=== PATIENT | male | born 1975 | race Caucasian/White ===

== ENCOUNTER 2024-07-23 09:46 | Outpatient (AMB) | payer MEDICARE, MEDICAID, SELFPAY ==
--- NOTE | 2024-07-23 09:53 | MHC.OFFVIS ---
Intake Visit Reasons: Left Shoulder pain and weakness Intake Note: Ruperto is a 49 year old male who presents with complaints of progressively worsening left shoulder pain and weakness. The patient states that he injured his left shoulder in 2020 when a tree limb fell onto his left arm. Since that time he has had difficulty lifting his left hand above shoulder height. He has failed the last 6 weeks of conservative treatment which have included physical therapy exercises, Tylenol and anti-inflammatory medicines. The patient describes his pain as sharp in nature. Most of the pain is along the superior and lateral aspects of his left shoulder. He denies any numbness or tingling in either of his upper extremities. Account Development Associate Required: Yes Account Development Associate Language: Guyanese Account Development Associate Name: [email or web address] [id number] Allergies No Known Allergies Allergy (Verified 07/23/24 09:57) Medication List - Last Reconciled 07/23/24 by Haim Parker MD No Known Home Meds Physical Exam Const Other: Well-nourished well-developed very friendly male awake alert and oriented x3 in no acute distress Extrem Other: Bilateral upper extremity examination shows good capillary refill, no skin lesions noted, normal sensation light touch Left shoulder examination shows slightly decreased range of motion when compared to his right shoulder, 4/5 strength with supraspinatus testing, positive impingement signs, tenderness over his acromioclavicular joint, no instability Results Reviewed Results Reviewed: X-rays of the patient's left shoulder show severe acromioclavicular joint narrowing, a type 2 acromion, no acute bony abnormalities Assessment & Plan Assessment & Plan (1) Left shoulder pain: Code(s): M25.512 - Pain in left shoulder Category: Medical Plan Mr. Menezes presents with progressively worsening left shoulder pain and weakness most likely due to a full-thickness rotator cuff tear. Thus, I will send the patient for an MRI of his left shoulder further evaluation. If he does have a full-thickness tear I will recommend surgical repair to optimize his future functional level. He will continue with his range of motion exercises in the meantime to prevent stiffness. Feel free to call me at any time should questions regarding his orthopedic management arise. Thank you very much for asking me to see this very friendly gentleman. I spent 22 minutes in reviewing the patient's records and imaging studies, seeing the patient and documenting in the medical record. Orders: Orders shoulder LT wo con Today M75.122 - Complete rotator cuff tear or rupture of left shoulder, not specified as traumatic XR shoulder LT min 2V Today M25.512 - Pain in left shoulder Coding Level of Care Code New Pt Level 3 (09068) Complex EM visit Add On G2211 Diagnoses Left shoulder pain M25.512
== END 2024-07-23 10:19 | disposition home or self-care (01) ==
PROVIDERS: PCP Nurse Practitioner; Visit Provider Orthopaedic Surgery
DX: M25.512 Pain in left shoulder (principal)
CPT/HCPCS: 99203; G2211

== ENCOUNTER 2024-07-23 10:20 | Outpatient (REF) | payer MEDICARE, SELFPAY ==
--- NOTE | ~2024-07-23 | XR_ITS ---
EXAMINATION: XR SHOULDER LEFT 2 VIEWS CLINICAL INFORMATION: Pain in left shoulder M25.512. COMPARISON: None available TECHNIQUE: Neutral AP and transscapular views of the left shoulder. FINDINGS: There is no fracture or dislocation. The glenohumeral joint is well aligned. The acromioclavicular joint is intact. The visualized lung is clear. The visualized ribs are intact. XR/XR shoulder LT min 2V IMPRESSION: Normal left shoulder radiographs. Electronically signed by: Eugenio Olsen MD 09/16/2024 07:48 AM [facility]
== END 2024-07-23 10:21 | disposition home or self-care (01) ==
LOC: HO.HOSX 10:20
PROVIDERS: Visit Provider Orthopaedic Surgery
DX: M25.512 Pain in left shoulder (principal)
CPT/HCPCS: 73030; 99202

== ENCOUNTER 2024-09-01 19:54 | Outpatient (REF) | payer MEDICARE, MEDICAID, SELFPAY ==
--- NOTE | ~2024-09-01 | MR_ITS ---
EXAMINATION: MR SHOULDER WITHOUT CONTRAST, LEFT CLINICAL INFORMATION: Left shoulder pain, swelling, numbness. Evaluate for rotator cuff tendon tear. COMPARISON: Left shoulder radiographs dated 07/23/2024. TECHNIQUE: MRI of the shoulder without contrast was performed on a high-field scanner. FINDINGS: ROTATOR CUFF: Complete, full-thickness tear of the supraspinatus tendon with a near-complete, full-thickness tear of the infraspinatus tendon. There are a few thin posterior infraspinatus tendon fibers remaining intact. Overall tearing measures up to 4.5 x 4.2 cm (AP x ML). The torn tendon fibers are retracted proximal to the humeral head apex. Mild edema within the supraspinatus and infraspinatus muscle bellies, consistent with acute strains. Moderate subscapularis tendinosis with distal bursal surface partial tearing. Mild infraspinatus muscle atrophy. BICEPS: Medial subluxation of the proximal long head biceps tendon with mild intra-articular tendinosis. CORACOACROMIAL ARCH: The undersurface of the acromion is curved with tiny subacromial spurs. Mild acromioclavicular osteoarthritis. LABRUM/CAPSULE: No labral tear. Intact inferior joint capsule. GLENOHUMERAL JOINT/MARROW: Intact articular cartilage. No acute osseous injury. Xscud-jz-rwtvskya joint effusion. MR/MR shoulder LT wo con IMPRESSION: 1. Complete, full-thickness tear of the supraspinatus tendon with a near-complete, full-thickness tear of the infraspinatus tendon. There are a few thin posterior infraspinatus tendon fibers remaining intact. The torn tendon fibers are retracted proximal to the humeral head apex. Mild supraspinatus and infraspinatus muscle strains. 2. Moderate subscapularis tendinosis with distal bursal surface partial tearing. Medial subluxation of the proximal long head biceps tendon with mild intra-articular tendinosis. 3. Mild acromioclavicular osteoarthritis with tiny subacromial spurs. 4. [id number]-vk-[id number] glenohumeral joint effusion. Electronically signed by: Luis Garcia MD 09/17/2024 12:46 PM [facility] [place] [facility]
== END 2024-09-01 19:55 | disposition home or self-care (01) ==
LOC: HO.MRI 19:54
PROVIDERS: Visit Provider Orthopaedic Surgery
DX: M75.122 Complete rotator cuff tear or rupture of left shoulder, not specified as traumatic (principal)
CPT/HCPCS: 73221

== ENCOUNTER 2024-10-20 11:00 | Outpatient (AMB) | payer MEDICARE, MEDICAID, SELFPAY ==
--- NOTE | 2024-10-20 11:01 | A.OFFVIS_ITS ---
Intake Visit Reasons: OV-Left shoulder MRI review Intake Note: Ruperto is a 49 year old male who presents with complaints of progressively worsening left shoulder pain and weakness. The patient states that he injured his left shoulder in 2020 when a tree limb fell onto his left arm. Since that time he has had difficulty lifting his left hand above shoulder height. He has failed the last 6 weeks of conservative treatment which have included physical therapy exercises, Tylenol and anti-inflammatory medicines. The patient describes his pain as sharp in nature. Most of the pain is along the superior and lateral aspects of his left shoulder. He denies any numbness or tingling in either of his upper extremities. Integrated Specialist Required: Yes Integrated Specialist Language: Montserratian Integrated Specialist Name: [id number] Information Interpreted: non-clinical & clinical Allergies No Known Allergies Allergy (Verified 10/20/24 11:01) Medication List - Last Reconciled 10/20/24 by Haim Parker MD No Known Home Meds Physical Exam Const Other: Well-nourished well-developed very friendly male awake alert and oriented x3 in no acute distress Extrem Other: Bilateral upper extremity examination shows good capillary refill, no skin lesions noted, normal sensation light touch Left shoulder examination shows decreased range of motion when compared to his right shoulder, 4/5 strength with supraspinatus testing, positive impingement signs, tenderness over his acromioclavicular joint, no instability Results Reviewed Results Reviewed: MRI of the patient's left shoulder show severe acromioclavicular joint narrowing, a type 2 acromion, a full-thickness tear of the supraspinatus tendon Assessment & Plan Assessment & Plan (1) Rotator cuff insufficiency of left shoulder: Code(s): M25.312 - Other instability, left shoulder Category: Medical Plan Mr. Menezes presents with progressively worsening left shoulder pain and weakness due to a full-thickness rotator cuff tear, impingement syndrome and acromioclavicular joint arthritis. I had a lengthy discussion with the patient regarding the treatment options. At this point the patient has failed continued non operative treatments. The risks and benefits of left shoulder surgery were discussed at length with the patient. He is considering undergoing surgery later this year. He will contact my office to pick a surgery date when he chooses to do so. He does understand that his tear can become larger in size and even irreparable over time. Surgery will most likely involve left shoulder diagnostic arthroscopy with distal clavicle excision, acromioplasty and rotator cuff repair. The patient will follow-up as instructed. Feel free to call me at any time should questions regarding his orthopedic management arise. I spent 21 minutes in reviewing the patient's records and imaging studies, seeing the patient and documenting in the medical record. Coding Level of Care Code Est Pt Level 3 (98472) Complex EM visit Add On G2211 Diagnoses Rotator cuff insufficiency of left shoulder M25.312
== END 2024-10-20 11:19 | disposition home or self-care (01) ==
PROVIDERS: PCP Nurse Practitioner; Visit Provider Orthopaedic Surgery
DX: M25.312 Other instability, left shoulder (principal)
CPT/HCPCS: 99213; G2211

== ENCOUNTER → 2024-10-20 11:00 | Outpatient (BNVA) | payer MEDICARE, MEDICAID, SELFPAY | PROVIDERS: PCP Nurse Practitioner; Visit Provider Orthopaedic Surgery | DX: M25.312 Other instability, left shoulder (principal) | CPT/HCPCS: 99212 ==

== ENCOUNTER 2025-04-14 10:34 | Outpatient (AMB) | payer MEDICARE, MEDICAID, SELFPAY ==
--- NOTE | 2025-04-14 10:40 | MHC.OFFVIS ---
Vital Signs 04/14/25 10:59 Height 5 ft 6 in Weight 176 lb 5.917 oz BMI 28.5 Intake Visit Reasons: New Prob - Left Hand Middle Finger Pain Intake Note: Ruperto is a 49 year old right hand dominant male who presents today for a New Problem visit with complaints of Left Middle Finger Pain. He reports that he cut his finger about a month ago with a knife, he did not need stitches. He is unable to actively extend the finger on his own. Pain is felt at the middle finger joint and feels that there is fluid in the finger. Denies numbness. X Ray Equipment Mechanic Required: Yes X Ray Equipment Mechanic Language: Surinamese X Ray Equipment Mechanic Name: [id number] Allergies No Known Allergies Allergy (Verified 10/20/24 11:01) HPI HPI New Prob - Left Hand Middle Finger Pain: Details: Ruperto is a 49 year old right hand dominant male who presents today for a New Problem visit with complaints of Left Middle Finger Pain. He reports that he cut his finger about a month ago with a knife, he did not need stitches. He is unable to actively extend the finger on his own. Pain is felt at the middle finger joint and feels that there is fluid in the finger. Denies numbness. [facility] Social History (Updated 04/14/25 @ 10:59 by Radha Myles [facility]) Current occupational status: employed Current occupation: Construction Review of Systems Const All systems reviewed & are unremarkable except as noted in HPI and below Physical Exam Vital Signs: BMI result Body Mass Index 28.5 Extrem Other: Patient is alert, oriented, and in no acute distress. Neuro: Normal sensation of the tips of all digits of the left hand at this time Vascular: Cap refill brisk Pain: No tenderness to palpation of the L MF No pain with passive ROM of L MF ROM: Patient is unable to actively extend the L MF at the PIP joint Can actively extend at MCP and DIP Is able to actively hold extension when passively extended at the PIP joint for approx 1 second before returning to flexion, no pain Skin: Well healed laceration of the dorsal L MF at the level of the proximal phalanx No open lacerations or abrasions. General: No ecchymosis, erythema, or evidence of infection. Psych: Appears grossly normal Affect normal Attitude cooperative Assessment & Plan Assessment & Plan (1) Laceration of extensor muscle, fascia and tendon of left middle finger at wrist and hand level, initial encounter: Code(s): S66.323A - Laceration of extensor muscle, fascia and tendon of left middle finger at wrist and hand level, initial encounter Category: Medical Plan 1. Extensor tendon laceration of L MF DOI approx. 1 month ago I educated the patient about the condition. I discussed both operative and nonoperative treatment options. The patient would like to proceed with surgery. The risks and benefits of operative treatment were discussed with the patient and the patient wishes to proceed with surgery. These risks include, but are not limited to, risk of damage to blood vessels, nerves, tendons, infection, recurrence, incomplete relief of preoperative symptoms, persistent pain, possible need for further surgery, and the risks associated with regional blocks and/or anesthesia. Plan is to take the patient to the operating room at some point in the next few weeks for the following procedures: 1. Left middle finger extensor tendon repair vs reconstruction All of the preoperative paperwork including the consent was discussed today. All of the patient's questions were answered in the clinic today. The patient understands that they will be in contact with our surgical clinical reviewer to discuss scheduling their procedure. Patient denies diabetes, blood thinners, asthma, heart issues, lung issues, kidney issues, or current smoking. Coding Level of Care Code Est Pt Level 4 (78287) Diagnoses Laceration of extensor muscle, fascia and tendon of left middle finger at wrist and hand level, initial encounter S66.323A
[2025-04-14 10:59] VITALS: BMI 28.5
--- OUTSIDE RECORDS SUMMARY | 2025-04-14 11:35 | XMS_ITS | Clinical Summary ---
Author Organization [facility] Address [address] [place] [address] Phone Care Team Providers Care Supervisor [employer] Name Role Phone Katie Hayes Primary Care Provider [phone] Medications polyethylene glycol (Golytely) [id number] -5.86 gram solution Take 4L by mouth once for one dose. May substitue any PEG. Starting at 6PM the night before your procedure drink 1 8oz glasses at your own pace until you complete half of the gallon. Finish 2nd half of the gallon 5 hours before your procedure. 4000 mL 5 Active bisacodyL (DULCOLAX) 5 mg EC tablet Take 2 tablets by mouth right before beginning bowel prep. See instructions provided by the office 2 tablet 5 Active Social History Tobacco Use Types Packs/Day Years Used Date Smoking Tobacco: Never Assessed Sex and Gender Information Value Date Recorded Sex Assigned at Not on file Legal Sex Male 5:49 PM EST Gender Identity Not on file Sexual Orientation Not on file Plan of Treatment Health Maintenance Due Date Last Done Comments DTaP,Tdap,and Td Vaccines (1 - Tdap) 1993 Hepatitis B Vaccines (1 of 3 - 19+ 3-dose series) 1993 Pneumococcal Vaccine: 50+ Ye ars (1 of 1 - PCV) 2024 Zoster Vaccines (1 of 2) 2024 COVID-19 Vaccine (2023-2 5 season) 2024 Cholesterol Screening (Lipid Panel) 07/14/2024 Colorectal Cancer Screening: Colonoscopy 07/14/2024 Depression Screening 07/14/2024 HIV Screening 07/14/2024 Hepatitis C Screening 07/14/2024 Medicare Annual Wellness Visit 07/14/2024 Social Influencers of Health Screening 07/14/2024 Influenza Vaccine (#1) 2025 HIB Vaccines Aged Out No longer eligi ble based on patient's age to complete this topic HPV Vaccines Aged Out No longer eligi ble based on patient's age to complete this topic Hepatitis A Vaccines Aged Out No long er eligible based on patient's age to complete this topic IPV Vaccines Aged Out No longer eligi ble based on patient's age to complete this topic MMR Vaccines Aged Out No longer eligi ble based on patient's age to complete this topic Meningococcal ACWY Vaccine Aged Out N o longer eligible based on patient's age to complete this topic Meningococcal B Vaccine Aged Out No l onger eligible based on patient's age to complete this topic Pneumococcal Vaccine: Pediat rics (0 to 5 Years) and At-Risk Patients (6 to 49 Years) Aged Out No longer eligible b ased on patient's age to complete this topic RSV Immunization Patients Un kianna 20 months Aged Out No longer eligible b ased on patient's age to complete this topic Varicella Vaccines Aged Out No longer eligible based on patient's age to complete this topic Insurance MEDICARE MEDICAID - [place] Care Teams Supervisor [employer] Relationship Specialty Start Date End Date Katie Hayes PCP - General 06/17/24
--- OUTSIDE RECORDS SUMMARY | 2025-04-14 11:35 | XMS_ITS | Clinical Summary ---
Author Organization [facility] Address [address] [place] [address] Care Team Providers Care Dog Barber Name Role Phone Ad Rudolph Katie BONILLA Primary Care Provider [phone] Source Comments PLEASE NOTE, if this patient is a minor, it may be UNLAWFUL to discuss sensitive information that is contained in these records (such as FAMILY PLANNING, MENTAL HEALTH or SUBSTANCE ABUSE) with the minor patient's parent or other person without the patient's specific authorization.[facility] Allergies No known active allergies Medications famotidine (PEPCID) 20 mg tablet Take 1 Tablet by mouth 2 (two) times daily as needed for heartburn Active Active Problems Problem Noted Date Diagnosed Date Prediabetes 06/17/2024 Other hyperlipidemia 06/17/2024 Left groin pain 08/13/2018 Family History Medical History Relation Name Comments Diabetes Father Other (See Comments) Father SD Diabetes Mother Relation Name Status Comments Father Alive Mother Alive Social History Tobacco Use Types Packs/Day Years Used Date Smoking Tobacco: Never Smokeless Tobacco: Never Tobacco Cessation:Counseling Given: Yes Alcohol Use Standard Drinks/Week Comments No 0 (1 standard drink = 0.6 oz pur e alcohol) Social Connections Answer Date Recorded How often do you feel lonely or isolated from th ose around you? 1 06/16/2024 Financial Resource Strain Answer Date R ecorded Hard to pay for: Food 1 06/16/2024 Stress Answer Date Recorded Do you feel these kinds of stress these days? 06/16/2024 Physical Activity Answer Date Recorded Physical Activity 0 01/13/2024 Food Insecurity Answer Date Recorded Hard to pay for: Food 1 06/16/2024 Transportation Needs Answer Date Record ed Hard to pay for: Transportation 06/16/2024 Housing Stability Answer Date Recorded Hard to pay for: Rent/Mortgage payment 1 06/16/2024 Safety and Environment Answer Date Jonah rded Safety 0 01/13/2024 Utilities Answer Date Recorded Hard to pay for: Utilities 1 06/16 Employment Answer Date Recorded Stress 0 06/16/2024 Sex and Gender Information Value Date Recorded Sex Assigned at Male 08/13/2018 6:33 AM PST Legal Sex Male 8:31 AM PDT Gender Identity Male 08/13/2018 6:33 AM PST Sexual Orientation Straight 08/13/2018 6: 33 AM PST 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 file Not on file Not on f ile Last Filed Vital Signs Vital Sign Reading Time Taken Comments Blood Pressure 114/68 06/16/2024 9:26 AM EDT Pulse 82 06/16/2024 9:26 AM EDT Temperature 36.8 C (98.2 F) 06/16/2024 9:26 AM EDT Respiratory Rate 18 06/16/2024 9:26 AM EDT Oxygen Saturation 97% 06/16/2024 9:26 AM EDT Inhaled Oxygen Concentration - - Weight 81.7 kg (180 lb 3.2 oz) 06/16/2024 9:26 A M EDT Height 172.7 cm (5' 8 ) 06/16/2024 9:26 AM EDT Body Mass Index 27.4 06/16/2024 9:26 AM EDT Plan of Treatment Upcoming Encounters Date Type Department Care Team (Late st Contact Info) Description 05/13/2025 9:40 AM EDT Office Visit [facility] [address] [place] [id number] Katie Hayes NP [address] [place] [address] Carlota Navarro [address] [place] [address] Health Maintenance Due Date Last Done Comments Anxiety Screening 1974 Imm-Hepatitis B (1 of 3 - 19 + 3-dose series) 1993 CT Colonography 2019 Colonoscopy 2019 Colorectal Cancer Screening 2019 FIT/gFOBT 2019 Fecal DNA 2019 Flexible Sigmoidoscopy 2019 Imm-Pneumococcal 50+ (1 of 1 - PCV) 2024 Imm-Zoster, Recombinant (1 of 2) 2024 Toi-PTZPV-22 (1 - 2023- season) 2024 Alcohol and Drug Screen 10/07/2024 06/16/2024, 08/13 Depression Annual Screen 10/07/2024 06/16/2024 Imm-Influenza (#1) 2025 Hypertension Screening (#1) 06/16/2025 Medicare Annual Wellness Visit 06/16/2025 06/16/2024 Tobacco Screening 06/16/2025 06/16/2024 Diabetes Screening 06/16/2027 06/16/2024, 0 06/16/2024, 08/13/2018, Additional history exists Lipid Screening 06/16/2029 06/16/2024, 08/13/2018 Imm-DTaP/Tdap/Td (2 - Td or Tdap) 05/27/2031 021 HIV Screening Completed 06/16/2024 Hepatitis C Screening Completed 06/16/2024 Procedures Procedure Name Priority Date/Time Associated Diagnosis Comments HIV 1/2 AG & AB W/RFLX (4TH GEN) Routine 06/16/2024 9:53 AM EDT Routine general medical examination at a health care facility HEPATITIS C AB W/RFLX HCV RNA, QT, RT PCR Routine 06/16/2024 9:53 AM EDT Routine general medical examination at a health care facility HEMOGLOBIN GLYCOSYLATED A1C Routine 06/16/2024 9:53 AM EDT Routine general medical examination at a health care facility LIPID PANEL Routine 06/16/2024 9:53 AM EDT Routine general medical examination at a health care facility from Last 3 Months or Most Recently Relevant to Health Maintenance Results * HEPATITIS C AB W/RFLX HCV RNA, QT, RT PCR (06/16/2024 9:53 AM EDT) HEPATITIS C ANTIBODY NON-REACT STEPHANIE NON-REACT STEPHANIE [facility] Comment: HCV antibody was non-reactive. There is no laboratory evidence of HCV infection. In most cases, no further action is required. However, if recent HCV exposure is suspected, a test for HCV RNA (test code 60665) is suggested. For additional information please refer to http://Rackspace.GPal/faq/QRG74g8 (This link is being provided for informational/ educational purposes only.) Blood Blood / Unknown 06/16/2024 9 :53 AM EDT 06/16/2024 9:53 AM EDT Narrative [facility] [employer] - 06/17/2024 6:59 AM EDT FASTING:NO Katie Hayes NP LAB - BLOOD DRAW Final Resul t [facility] [address] [place] [id number], [employer] [address] [phone] * HIV 1/2 AG & AB W/RFLX (4TH GEN) (06/16/2024 9:53 AM EDT) Pathologist [facility] [place] HIV AG/AB, 4TH GEN NON-REAC TIVE NON-REAC TIVE [facility] Comment: HIV-1 antigen and HIV-1/HIV-2 antibodies were not detected. There is no laboratory evidence of HIV infection. PLEASE NOTE: This information has been disclosed to you from records whose confidentiality may be protected by state law. If your state requires such protection, then the state law prohibits you from making any further disclosure of the information without the specific written consent of the person to whom it pertains, or as otherwise permitted by law. A general authorization for the release of medical or other information is NOT sufficient for this purpose. For additional information please refer to http://Rackspace.GPal/faq/ZBW609 (This link is being provided for informational/ educational purposes only.) The performance of this assay has not been clinically validated in patients less than 2 years old. Blood Blood / Unknown 06/16/2024 9 :53 AM EDT 06/16/2024 9:53 AM EDT Narrative [facility] - 06/17/2024 6:59 AM EDT FASTING:NO us Katie Hayes NP LAB - BLOOD DRAW Final Resul t Performing Organization Address [facility] de Phone Number [facility] [address] [address], [employer] [address] [address] * (ABNORMAL) HEMOGLOBIN GLYCOSYLATED A1C (06/16/2024 9:53 AM EDT) HEMOGLOBIN A1C 5.9(H) <5.7 % of total Hgb [facility] Comment: For someone without known diabetes, a hemoglobin A1c value between 5.7% and 6.4% is consistent with prediabetes and should be confirmed with a follow-up test. For someone with known diabetes, a value <7% indicates that their diabetes is well controlled. A1c targets should be individualized based on duration of diabetes, age, comorbid conditions, and other considerations. This assay result is consistent with an increased risk of diabetes. Currently, no consensus exists regarding use of hemoglobin A1c for diagnosis of diabetes for children. Blood Blood / Unknown 06/16/2024 9 :53 AM EDT 06/16/2024 9:53 AM EDT Narrative [facility] - 06/17/2024 6:59 AM EDT FASTING:NO us Katie Hayes NP LAB - BLOOD DRAW Edited Resu lt - Final Performing Organization Address [facility] Co de Phone Number [facility] [address] [address], [employer] [address] [address] * (ABNORMAL) LIPID PANEL (06/16/2024 9:53 AM EDT) CHOLESTEROL, TOTAL 226(H) <200 mg/dL [facility] HDL CHOLESTEROL 42 > OR = 40 mg/dL [facility] TRIGLYCERIDES 101 <150 mg/dL [facility] LDL-CHOLESTEROL 163(H) 99 mg/dL (calc) [facility] Comment: Reference range: <100 Desirable range <100 mg/dL for primary prevention; <70 mg/dL for patients with CHD or diabetic patients with > or = 2 CHD risk factors. LDL-C is now calculated using the Avery calculation, which is a validated novel method providing better accuracy than the Friedewald equation in the estimation of LDL-C. Jesús MERCEDES et al. KIRAN. 2013;310(19): 5396-2640 (http://education.Tasqe/faq/GLG605) CHOL/HDLC RATIO 5.4(H) <5.0 (calc) [facility] NON-HDL CHOLESTEROL 184(H) <130 mg/dL (calc) [facility] Comment: For patients with diabetes plus 1 major ASCVD risk factor, treating to a non-HDL-C goal of <100 mg/dL (LDL-C of <70 mg/dL) is considered a therapeutic option. Blood Blood / Unknown 06/16/2024 9 :53 AM EDT 06/16/2024 9:53 AM EDT Narrative [facility] - 06/17/2024 6:59 AM EDT FASTING:NO Katie Hayes NP LAB - BLOOD DRAW Final Resul t [facility] [address] [place] [phone], [facility] [address] [place] [phone] from Last 3 Months or Most Recently Relevant to Health Maintenance [place] Care Teams Dog Barber Relationship Specialty Start Date End Date Katie Hayes NP [address] [place] [address] PCP - General Internal Medicine 03/26/24
== END 2025-04-14 11:38 | disposition home or self-care (01) ==
LOC: HO.HOS 10:35
PROVIDERS: PCP Nurse Practitioner
DX: S66.323A Laceration of extensor muscle, fascia and tendon of left middle finger at wrist and hand level, initial encounter (principal)
CPT/HCPCS: 99214

== ENCOUNTER → 2025-04-14 10:34 | Outpatient (BNVA) | payer MEDICARE, MEDICAID, SELFPAY | PROVIDERS: PCP Nurse Practitioner | DX: S66.323A Laceration of extensor muscle, fascia and tendon of left middle finger at wrist and hand level, initial encounter (principal) | CPT/HCPCS: 99212 ==

== ENCOUNTER 2025-05-03 07:01 | Day surgery (SDC) | payer MEDICARE, MEDICAID, SELFPAY ==
[2025-04-22 13:58] VITALS: BMI 28.2
[2025-05-03] VITALS (8 sets, daily range): BP systolic 120–140; BP diastolic 77–87; PULSE 68–77; RESP 14–16; TEMP 36.9–37.1; O2SAT 95–99
--- NOTE | ~2025-05-03 | FL_ITS ---
EXAMINATION: FL GUIDANCE ONLY HISTORY: middle finger extensor tendon repair vs reconstruction COMPARISON: None available. TECHNIQUE: Fluoroscopy time: 12.84 seconds. Cumulative Dose: 0.3288 mGy. DAP: 0.0199 mGym2 Images: 4. FINDINGS: Fluoroscopic spot films of the middle finger demonstrate a K wire across the PIP joint. FL/FL guidance in OR IMPRESSION: Fluoroscopy during procedure. Please see procedure report for additional information. Electronically signed by: Steven Tang MD 05/03/2025 02:20 PM EDT
[2025-05-03] MEDS: Lactated Ringers 1,000 ML 100 ML IVCONT (07:54)
--- NOTE | 2025-05-03 09:10 | HO.ANESPROP2 ---
[facility], [facility] Active Problems Active Problems: All Active Problems (Updated 04/27/25 @ 13:29 by Malena Connell RN) Laceration of extensor muscle, fascia and tendon of left middle finger at wrist and hand level, initial encounter (Acute) Rotator cuff insufficiency of left shoulder (Acute) Left shoulder pain (Acute) Past Medical History Medical History Prediabetes Foot fracture GERD (gastroesophageal reflux disease) Surgical History Surgical History Hx of foot surgery History of Problems with Anesthesia: No Social History Social History Are you a primary healthcare analyst to a significant other at home: No Do you presently have visiting nurse or other home services: No Patient Tobacco Use Status: Never used Tobacco Use of substances other than those prescribed or required for medical reasons: No Have you been hit, kicked, punched, or otherwise hurt by someone within the past year? If so, by whom?: No Are you DNR?: No Advance Directives: No Advance Directives Information Provided: Yes Advance Directives on File: No Poor oral hygiene: Yes Current occupational status: employed Current occupation: [employer] Allergies Allergy/AdvReac Type Severity Reaction Status Date / Time No Known Allergies Allergy Verified 10/20/24 11:01 Active Medications: Current Medications Lactated Ringer's (Lr) 1,000 mls @ 100 mls/hr IVCONT .Q10H IRISH Last Admin: 05/03/25 07:54 Dose: 100 mls/hr Home Medications ?Medication ?Instructions ?Recorded ?Confirmed ?Last Taken ?Type multivitamin 1 tab PO DAILY 04/22/25 04/22/25 Unknown History famotidine 20 mg tablet 20 mg PO BID PRN Heartburn 04/27/25 04/27/25 Unknown History Exam Height,Weight and Vital Signs: Height 5 ft 6 in Weight 79.379 kg Last Vital Signs Temp 98.5 F 05/03/25 07:32 Pulse 74 05/03/25 07:32 Resp 14 05/03/25 07:32 BP 136/81 05/03/25 07:32 Pulse Ox 97 05/03/25 07:32 O2 Del Method Room Air 07/28/25 07:32 Airway Mallampati Class: II TM Dist: >3cm Neck ROM: Full Loose/Missing/Broken Teeth: No Heart: RRR Lungs: CTA Assessment and Plan Assessment Anesthesia Assessment: Anesthesia Plan Discussed and Chart Reviewed Final Anesthetic Review History of Problems with Anesthesia: No NPO: Yes ASA Class: I Final Preanesthetic Review: Meds/Allgs Chart Reviewed, Consent Obtained/Reviewed and Anes Risks/Benef Reviewed Patient Risk: Low Procedure Risk: Low Anesthetic Plan Anesthetic Plan: GA Disposition: Standard PACU
--- NOTE | 2025-05-03 10:10 | MHC.SHP ---
Pre-Procedural Eval Section A - 24 Hr Update-Section A only Date of Service: 05/03/25 The patient is an INPATIENT: No Changes since office visit: No Cold of Flu in the past 2 weeks, No New Medical Problems, No Changes in Medication and No Patient answered all questions The patient has been examined within 24 hours of the surgical procedure. The History & Physical has been completed within 30 days and I have reviewed it.: Yes Section B - Complete if H&P > 30 days Chief Complaint: Laceration without foreign body of left middle Allergies: Allergies Allergy/AdvReac Type Severity Reaction Status Date / Time No Known Allergies Allergy Verified 10/20/24 11:01 Plan Diagnosis/Plan: Unchanged (Patient's surgery was delayed as we were bumped for an emergency case.) I have reviewed the history and physical and performed a pertinent physical examination on my patient. No changes have occurred unless specified. Time Spent With Patient Time: Total time managing care of this patient today ____ minutes.
--- NOTE | 2025-05-03 10:11 | W.PM.OPN ---
Operative Note Operative Note Date of Service: 05/03/25 Narrative: Operative Note Narrative: Preop diagnosis: 1. Left middle finger subacute laceration of central slip extensor tendon Postop diagnosis: Same Procedure: 1. Left middle finger debridement of interposed scar tissue from extensor tendon, and delayed primary repair of central slip extensor tendon 2. Freeing up of adhesions formed between the extensor tendon in the dorsal aspect of the proximal phalanx of the left middle finger to mobilize tendon and allow for repair 3. I&D of PIP joint with cultures and debridement of synovitis 4. Closed reduction percutaneous pinning of the left middle finger PIP joint in extension Surgeon: Arely Rivas MD Certified Executive Chef: None Anesthesia: General Anesthesia Findings: Central slip laceration of the PIP joint with about 8 mm of retraction and healing of interposed scar tissue. Some synovitis and excessive fluid were found within the PIP joint. Cultures were taken. Adhesions were noted between the dorsal aspect of the left middle finger proximal phalanx in the undersurface of the extensor tendon. Implants: 0.045 K-wire x1 Tourniquet time: 51 minutes EBL: 5.0 ml Specimen: None Drains: None Complications: None Disposition: Brought to the recovery room in stable condition Plan: Follow-up in 10-14 days for wound check, to check cultures, and suture removal Remove K-wire at 10-14 day visit, but do not allow flexion beyond about 30 degrees. He should have a same-day appointment with OT, where they will make a custom thermoplastic splint allowing for MCP and DIP flexion, and begin progressive short arc of motion exercises. Short arc of motion exercises are to allow for tendon gliding and to decrease risk of adhesions only. Full motion should not begin until at least 6 weeks postop. Indications: The patient is a 49 year old man with subacute laceration of the dorsal aspect of the left middle finger PIP joint suspicious for a central slip extensor tendon laceration . The risks and benefits of operative treatment, including but not limited to risk of damage to blood vessels, nerves, tendons, infection, recurrence, persistent pain or numbness, incomplete resolution of preoperative symptoms, or need for further surgery were discussed with the patient and they wished to proceed with surgery. Procedure: Once consent was obtained patient was brought back to the operating suite and placed in the operating table in a supine position. . Perioperative antibiotics and anesthesia was administered by the anesthesia team. A tourniquet was applied to the proximal aspect of the left upper extremity and the limb was prepped and draped in a standard surgical fashion. The limb was elevated exsanguinated with Esmarch bandage and the tourniquet inflated to 250 mm of mercury for a total tourniquet time of 51 minutes. A dorsal longitudinal incision was made extending from the dorsal aspect of the left middle finger PIP joint proximally along the proximal phalanx. I then dissected down to the level of the extensor mechanism and the dorsal aspect of the PIP joint. Again this is a subacute injury about 6 weeks out from injury. There was retraction of the central slip by about 8-10 mm with interposed well forearm scar tissue. The scar tissue was excised using a 15 blade and iris scissors. Within the PIP joint we noted an unusual amount of fluid and this was cultured. There was also some inflammatory synovitis. A synovectomy was performed using a small rongeur. The articular surfaces appeared to be in good condition. The ligaments were noted to be intact and the joint stable. The extensor mechanism was noted to be adherent to the dorsal surface of the proximal phalanx. The adhesions were freed up using tenotomy and iris scissors. This allowed for increased excursion of the extensor tendon. The PIP joint of the wound were then copiously irrigated with normal saline. The PIP joint was brought into extension and a delayed primary repair of the central slip extensor tendon was performed using some 4-0 FiberWire. I appreciated that I was able to flex the PIP joint to about 90 degrees and bring it back into full extension with reasonable excursion of the extensor mechanism and no gapping of our repair. The PIP joint was then brought into extension and I passed a 0.045 K-wire obliquely across the PIP joint to protect the repair. AP and lateral fluoroscopic images were obtained and/or satisfactory. The pin was bent cut short had a pin cap applied. At this point the tourniquet was deflated and hemostasis obtained with a brief period of local pressure . The wound was copiously irrigated with normal saline. The skin edges were reapproximated with 4-0 Prolene suture. A digital block was performed with some 1% lidocaine with epinephrine for postop pain control and a sterile dressing was applied. The patient was then placed in a short-arm finger spica splint extending from the tips of the middle ring and small fingers to the volar forearm. The patient appears to have tolerated the procedure well and with no complications. All digits were well vascularized conclusion of the case.
--- NOTE | 2025-05-03 15:04 | PC.NURSE ---
THAI SPEAKING AND INSIDE SALES CONSULTANT USED.
== END 2025-05-03 15:05 | disposition home or self-care (01) ==
PROVIDERS: Visit Provider Orthopaedic Surgery
PROC: (CPT 26426; principal; 2025-05-03 08:40)
DX: S66.323A Laceration of extensor muscle, fascia and tendon of left middle finger at wrist and hand level, initial encounter (principal); M65.842 Other synovitis and tenosynovitis, left hand; W26.0XXA Contact with knife, initial encounter; Y93.9 Activity, unspecified; Y92.9 Unspecified place or not applicable; Y99.8 Other external cause status
CPT/HCPCS: 26426; 26140; 26776; 26080; 87070; 87205; A4649; J0131; J0690; J1100; J2003; J2004; J2250; J2405; J2704; J3010

== ENCOUNTER → 2025-05-03 07:01 | Outpatient (BNV) | payer MEDICARE, MEDICAID, SELFPAY | PROVIDERS: Visit Provider Orthopaedic Surgery | DX: S66.323A Laceration of extensor muscle, fascia and tendon of left middle finger at wrist and hand level, initial encounter (principal) | CPT/HCPCS: 26428; 26445; 26727 ==

== ENCOUNTER 2025-05-18 10:31 | Outpatient (AMB) | payer MEDICARE, MEDICAID, SELFPAY ==
--- NOTE | 2025-05-18 10:34 | MHC.OFFVIS ---
Vital Signs 05/18/25 10:42 Height 5 ft 6 in Weight 175 lb BMI 28.2 Intake Visit Reasons: PO-Lt MF Tendon Repair & CRPP 05/03/25 Intake Note: Ruperto is a 49 year old hand dominant male who presents today, with his who aids with interpretation, for their first post-operative visit status post left middle finger tendon repair & CRPP of the PIP joint in extension DOS: 05/03/[address] Rivas. Patient complains of pain of left middle finger pain. Denies numbness or tingling. He has been taking Ibuprofen PRN with relief of pain. Dressing removed during intake. Patient was instructed multiple times to not wet his hand or touch his incision/pin site. Allergies No Known Allergies Allergy (Verified 05/18/25 10:34) HPI HPI PO-Lt MF Tendon Repair & CRPP 05/03/25: Details: Ruperto is a 49 year old hand dominant male who presents today, with his who aids with interpretation, for their first post-operative visit status post left middle finger tendon repair & CRPP of the PIP joint in extension DOS: 05/03/[address] Rivas. Patient complains of pain of left middle finger pain. Denies numbness or tingling. He has been taking Ibuprofen PRN with relief of pain. Dressing removed during intake. Patient was instructed multiple times to not wet his hand or touch his incision/pin site. [facility] Medical History Prediabetes Foot fracture GERD (gastroesophageal reflux disease) Surgical History Hx of foot surgery Social History Are you a primary direct care staffer to a significant other at home: No Do you presently have visiting nurse or other home services: No Patient Tobacco Use Status: Never used Tobacco Current occupational status: employed Current occupation: Construction Review of Systems Const All systems reviewed & are unremarkable except as noted in HPI and below Physical Exam Vital Signs: BMI result Body Mass Index 28.2 Extrem Other: Patient is alert, oriented, and in no acute distress. Neuro: Normal sensation of the tips of all digits of the left hand at this time Vascular: Cap refill brisk Pain: No tenderness to palpation of the L MF No pain with passive ROM of L MF ROM: Patient is unable to flex at the PIP joint of the left middle finger due to K-wire being in place Can actively extend at MCP and DIP Skin: Well approximated and well healing incision site noted on dorsal aspect of the left middle finger over the PIP joint No evidence of infection about incision site or pin site General: No ecchymosis, erythema, or evidence of infection. Psych: Appears grossly normal Affect normal Attitude cooperative Assessment & Plan Assessment & Plan (1) Laceration of extensor muscle, fascia and tendon of left middle finger at wrist and hand level, initial encounter: Code(s): S66.323A - Laceration of extensor muscle, fascia and tendon of left middle finger at wrist and hand level, initial encounter Category: Medical Plan 1. Status post adhesion release and extensor tendon exploration of left middle finger DOS 05/03/2025 Patient is educated about the typical recovery course Patient appears to be recovering well postoperatively At this time, patient is given a finger splint to immobilize the PIP joint of the left middle finger while allowing motion of the MCP and DIP joints of the same digit Patient is educated he can wash the incision site with soap and water in the sink of the shower starting tomorrow, as long as the pin site appears well closed, but should wait another day if it does not Avoid submerging 2 lb weight limit in left hand Patient should follow-up with OT on 05/20/2025 for a custom thermal molded blocking splint for the left middle finger to allow a maximum of 30 degrees of flexion of the joint Patient should also work on very early range of motion of the left middle finger with OT Daily dressing changes for another week Patient understands this is amenable to this plan Follow-up in 3-[address] Rivas for reassessment, sooner with any acute concerns Coding Level of Care Code Global (04768) Diagnoses Laceration of extensor muscle, fascia and tendon of left middle finger at wrist and hand level, initial encounter S66.323A
[2025-05-18 10:42] VITALS: BMI 28.2
--- OUTSIDE RECORDS SUMMARY | 2025-05-18 11:34 | XMS_ITS | Clinical Summary ---
Author Organization [facility] Address [address] [place] [address] Phone Care Team Providers Care Ap Operator Name Role Phone Katie Hayes Primary Care Provider [phone] Medications polyethylene glycol (Golytely) 236-22.74-6.74 -5.86 gram [...] Panel) 07/14/2024 Colorectal Cancer Screening: Colonoscopy 07/14/2024 HIV Screening 07/14/2024 Hepatitis C Screening 07/14/2024 Medicare Annual Wellness Visit 07/14/2024 Social Influencers of Health Screening 07/14/2024 Depression Screening 10/07/2024 Influenza Vaccine (#1) 2025 HIB Vaccines Aged [...] Insurance MEDICARE MEDICAID - [place] Care Teams Ap Operator Relationship Specialty Start Date End Date Katie Hayes [facility] - General 06/17/24
== END 2025-05-18 11:25 | disposition home or self-care (01) ==
LOC: HO.HOS 10:31
PROVIDERS: PCP Nurse Practitioner
DX: S66.323A Laceration of extensor muscle, fascia and tendon of left middle finger at wrist and hand level, initial encounter (principal)
CPT/HCPCS: 99024

== ENCOUNTER → 2025-05-18 10:31 | Outpatient (BNVA) | payer MEDICARE, MEDICAID, SELFPAY | PROVIDERS: PCP Nurse Practitioner | DX: S66.323D Laceration of extensor muscle, fascia and tendon of left middle finger at wrist and hand level, subsequent encounter (principal); Z98.890 Other specified postprocedural states | CPT/HCPCS: 99212 ==

== ENCOUNTER 2025-06-09 10:01 | Outpatient (RCR) | payer MEDICARE, MEDICAID, SELFPAY ==
--- NOTE | 2025-05-27 15:10 | MHC.OT.EP ---
[facility] Office [address] [facility] [address] [facility] [phone] F: [phone] F: [phone] Occupational Therapy Plan of Care Patient Name: Ruperto Menezes Date of Evaluation: 05/27/25 Diagnosis: Extensor laceration exploration w/ CRPP Pain Location: Pain Score: 3 Pain Scale Used: Numeric (0 - 10) Aggravating Factors: Alleviating Factors: Assessment: Pt is a 50 yr old R hand dominant male who injured his L MF (Dorsal side) when using a knife 2 mos. prior to his surgery. He saw Dr. Rivas for a consultation due to lack of ROM and inability to extend his digit ; pt. had the extensor ( @ PIP J ) laceration surgically repaired w/ CRPP. The pin was removed recently at the MD'S office and pt was ordered OT for orthoses fabrication and to begin OT exercises on the PT DID NOT ARRIVE TO HIS APPOINTENT ON TIME (30 + MIN LATE) AND WE BEGAN THERAPY TODAY 05/27. He has been removing his orthoses given to him at the MD's office, even though he is aware he was not supposed to. Pt presents today w/ mild edema , decreased ROM, and functional use of his MF. Pt would benefit from skilled OT therapy to address these deficits to RPLOF Frequency and Duration: The patient will be seen 1 xa week for 6 weeks 1 hr Short Term Goals: Pt will be compliant/ HEP Pt will be compliant w/ orthoses (1 night time & 1 day splint) Pt will be compliant w/ scar care Snf Goals: Pt will have 60 of AROM of his PIP J Pt will report 1/10 pain w/ activity Treatment Plan: Therapeutic Exercise Therapeutic Activity Home Exercise Program Splinting Neuro Re-ed Patient Education Desensitization/Sensory Re-ed Edema Control ADL Training Ultrasound NMES Iontophoresis Paraffin Fluidotherapy MHP Cold Packs Joint Mobilization Soft Tissue Mobilization Kinesiotaping Electronically Signed By: Sindy Coronado OTR/L Please Sign and return to therapist. Thank you once again for your referral.
--- NOTE | 2025-06-09 10:09 | MHC.OT.EP ---
[facility] Office [address] [facility] [address] [facility] [phone] F: [phone] F: [phone] Occupational Therapy Plan of Care Patient Name: Ruperto Menezes Date of Evaluation: 06/09/25 Diagnosis: Extensor laceration exploration w/ CRPP Pain Location: Pain Score: 3 Pain Scale Used: Numeric (0 - 10) Aggravating Factors: Alleviating Factors: Assessment: Pt is a 50 yr old R hand dominant male who injured his L MF (Dorsal side) when using a knife 2 mos. prior to his surgery. He saw Dr. Rivas for a consultation due to lack of ROM and inability to extend his digit ; pt. had the extensor ( @ PIP J ) laceration surgically repaired w/ CRPP. The pin was removed recently at the MD'S office and pt was ordered OT for orthoses fabrication and to begin OT exercises on the PT DID NOT ARRIVE TO HIS APPOINTENT ON TIME (30 + MIN LATE) AND WE BEGAN THERAPY TODAY 05/27. He has been removing his orthoses given to him at the MD's office, even though he is aware he was not supposed to. Pt presents today w/ mild edema , decreased ROM, and functional use of his MF. Pt would benefit from skilled OT therapy to address these deficits to RPLOF Frequency and Duration: The patient will be seen 1 xa week for 6 weeks 1 hr Short Term Goals: Pt will be compliant/ HEP Pt will be compliant w/ orthoses (1 night time & 1 day splint) Pt will be compliant w/ scar care Mcfp Goals: Pt will have 60 of AROM of his PIP J Pt will report 1/10 pain w/ activity Treatment Plan: Therapeutic Exercise Therapeutic Activity Home Exercise Program Splinting Neuro Re-ed Patient Education Desensitization/Sensory Re-ed Edema Control ADL Training Ultrasound NMES Iontophoresis Paraffin Fluidotherapy MHP Cold Packs Joint Mobilization Soft Tissue Mobilization Kinesiotaping Electronically Signed By: Sindy Coronado OTR/L Please Sign and return to therapist. Thank you once again for your referral.
--- NOTE | 2025-06-23 13:22 | MHC.OT.DC ---
[facility] Office [address] [facility] [address] [facility] [phone] F: [phone] F: [phone] Occupational Therapy Discharge Note Patient Name: Ruperto Menezes Provider: Arely Rivas Diagnosis: Extensor laceration exploration w/ CRPP Date of Surgery: 05/04/25 Date of Evaluation: 05/27/25 Date of Discharge: Treatments to Date: 2 Cancellations to Date: No Shows to Date: Discharge Status: Visit Non-compliance Discharge Summary: PT DID NOT FOLLOW UP W/ THERAPY; MISSED 2 CONSECUTIVE TX'S Electronically Signed By: Sindy Coronado OTR/L Reviewed/agree with student documentation: Therapist: Please Sign and return to therapist, thank you for your referral.
== END 2025-06-23 13:22 | disposition home or self-care (01) ==
LOC: HO.OT 10:01
PROVIDERS: Visit Provider Orthopaedic Surgery
DX: S66.323D Laceration of extensor muscle, fascia and tendon of left middle finger at wrist and hand level, subsequent encounter (principal)
CPT/HCPCS: 97166; 97535; 97760

== ENCOUNTER 2025-06-09 13:46 | Outpatient (AMB) | payer MEDICARE, MEDICAID, SELFPAY ==
[2025-06-09 14:00] VITALS: BMI 28.2
--- NOTE | 2025-06-09 14:00 | A.OFFVIS_ITS ---
Vital Signs 06/09/25 14:00 Height 5 ft 6 in Weight 175 lb BMI 28.2 Intake Visit Reasons: PO: Lt MF Tendon Repair & CRPP 05/03/25 Intake Note: Ruperto is a 49 year old hand dominant male who presents today, with his who aids with interpretation, for his post-operative visit status post left middle finger tendon repair & CRPP of the PIP joint in extension DOS: 05/03/[address] Rivas. At his last visit he was advise no heavy lifting more than 2 lbs, no submerging in dirty water and continue to use finger splint. Currently states he has pain on and off, he was given his custom made splint today. States he is limited ROM with his ring and small finger. Allergies No Known Allergies Allergy (Verified 06/09/25 14:04) HPI HPI PO: Lt MF Tendon Repair & CRPP 05/03/25: Details: Ruperto is a 50 year old right hand dominant Turkmen speaking man who presents S/P left middle finger central slip tendon repair & CRPP of PIP joint, DOS: 05/03/25. K-wires removed in clinic on 05/18/2025 The patient reports that he is doing well. He reports some mild stiffness of his ring & small fingers. He was seen by OT this morning to have a custom finger splint made for him. Per OT note from this morning, 06/09/25, he was non-compliant with wearing his original splint, and went to [place] last week and did not wear his orthosis. [facility] Medical History Prediabetes Foot fracture GERD (gastroesophageal reflux disease) Surgical History Hx of foot surgery Social History Are you a primary women's health care nurse practitioner to a significant other at home: No Do you presently have visiting nurse or other home services: No Patient Tobacco Use Status: Never used Tobacco Current occupational status: employed Current occupation: Construction Review of Systems Const All systems reviewed & are unremarkable except as noted in HPI and below Physical Exam Vital Signs: BMI result Body Mass Index 28.2 Const General: no acute distress and alert Orientation/consciousness: patient oriented x3 Neuro General: patient oriented x3 Extrem Other: Evaluation of Left Upper Extremity: The patient is alert, oriented, and in no acute distress Neuro: Median, Ulnar, Radial nerves motor and sensory intact and sensation is normal to the tips of all digits Vascular: Cap refill brisk ROM: Regarding his left middle finger: He can fully and actively extend the digit at the MCP PIP and D IP joints. He he can bring the PIP joint to about 45 degrees of flexion actively and then bring it back actively into full extension. He can bring his other fingers closed to a fist and back into full extension Microbiology report 05/03/25 Gram stain Final 05/03/25-1339 Gram stain results: No polys No organisms seen Routine Culture Final 05/05/25-823 No growth. Psych Appearance: grossly normal Affect: normal affect Attitude: cooperative Assessment & Plan Assessment & Plan (1) Laceration of extensor muscle, fascia and tendon of left middle finger at wrist and hand level, initial encounter: Code(s): S66.323A - Laceration of extensor muscle, fascia and tendon of left middle finger at wrist and hand level, initial encounter Category: Medical Plan Assessment & Plan: 1. Left middle finger subacute laceration of central slip extensor tendon DOI: ~03/15/25 S/P: A) Debridement of interposed scar tissue from extensor tendon, and delayed primary repair of central slip extensor tendon B) Freeing up of adhesions formed between the extensor tendon in the dorsal aspect of the proximal phalanx of the left middle finger to mobilize tendon and allow for repair C) I&D of PIP joint with cultures and debridement of synovitis D) CRPP of the left middle finger PIP joint in extension Date of surgery 05/03/2025 The patient appears to be doing well post-operatively, despite not really wearing his splint I educated him and his about the post-operative course Per OT note from this morning, he admits to being non-compliant with wearing his splint as instructed, and had been going to [place] without wearing his orthosis *See note from 06/09/25 for more details* I discussed activity modification, he is to attend OT hand therapy and work on PIP joint ROM. He can begin to work on full ROM as of 06/13/25 as he will be 6 weeks postop I then.. He is to use his hand for lightweight activities and slowly increase as tolerated over the next 4 weeks. He is to avoid any heavy impact activities or falls for the next 6 weeks He will work on ROM exercises at home He will follow up in 4-5 weeks for a ROM check Scribed for Arely Rivas MD by Ricco Salas, director of medical education, on 06/09/25 at 2:40 PM, EST. Orders: Orders OT Evaluation and Treatment Today S66.323A - Laceration of extensor muscle, fascia and tendon of left middle finger at wrist and hand level, initial encounter Coding Level of Care Code Global (22327) Diagnoses Laceration of extensor muscle, fascia and tendon of left middle finger at wrist and hand level, initial encounter S66.323A
--- OUTSIDE RECORDS SUMMARY | 2025-06-09 15:55 | XMS_ITS | Clinical Summary ---
Author Organization [facility] Address [address] [place] [address] Phone Care Team Providers Care Engineering Technical Writer Name Role Phone Katie Hayes Primary Care Provider [phone] Medications polyethylene glycol (Golytely) [id number] -5.86 gram [...] Insurance MEDICARE MEDICAID - [place] Care Teams Engineering Technical Writer Relationship Specialty Start Date End Date Katie Hayes [facility] - General 06/17/24
--- OUTSIDE RECORDS SUMMARY | 2025-06-09 15:55 | XMS_ITS | Clinical Summary ---
Author Organization [facility] Address [address] [place] [address] Care Team Providers Care Transportation Job Titles Name Role Phone Katie Hayes NP Primary Care Provider [phone] Source Comments PLEASE NOTE, if this patient is a minor, it may be UNLAWFUL to discuss sensitive information that is contained in these records (such as FAMILY PLANNING, MENTAL HEALTH or SUBSTANCE ABUSE) with the minor patient's parent or other person without the patient's specific authorization.[facility] Allergies No known active allergies Medications famotidine (PEPCID) 20 mg tabletIndicatio ns:Gastroesopha geal reflux disease without esophagitis Take 1 Tablet by mouth 2 (two) times daily as needed for heartburn for up to 90 days. 60 Tablet 5 08/11/20 25 Active famotidine (PEPCID) 20 mg tablet Take 1 Tablet by mouth 2 (two) times daily as needed for heartburn 4 05/13/20 25 Discontinu ed(Reorder (E-Cancel Not Sent)) Active Problems Problem Noted Date Diagnosed Date Right shoulder pain 05/13/2025 Prediabetes 06/17/2024 Other hyperlipidemia 06/17/2024 Left groin pain 08/13/2018 Encounters Date Type Department Care Team Description 06/03/2025 Results Follow-Up [address] [phone] Katie Hayes NP 05/13/2025 9:40 AM EDT Office Visit [address] [phone] Katie Hayes NP from Last 3 Months Family History Medical History Relation Name Comments Diabetes Father Other (See Comments) Father [place] Diabetes Mother Relation Name Status Comments Father [...] isolated from th ose around you? 1 05/13/2025 Financial Resource Strain Answer Date R ecorded Hard to pay for: Food 1 05/13/2025 Stress Answer Date Recorded Do you feel these kinds of stress these days? 1 05/13/2025 Physical Activity Answer Date Recorded Physical Activity 0 01/13/2024 Food Insecurity Answer Date Recorded Hard to pay for: Food 1 05/13/2025 Transportation Needs Answer Date Record ed Hard to pay for: Transportation 1 05/13/2025 Housing Stability Answer Date Recorded Hard to pay for: Rent/Mortgage payment 1 06/16/2024 Safety and Environment Answer Date Jonah rded Safety 0 01/13/2024 Utilities Answer Date Recorded Hard to pay for: Utilities 1 05/13 Employment Answer Date Recorded Stress 0 06/16/2024 Sex and Gender Information Value Date Recorded Sex Assigned at Male 08/13/2018 6:33 AM PST Legal Sex Male 8:31 AM PDT Gender Identity Male 08/13/2018 6:33 AM PST Sexual Orientation Straight 08/13/2018 6: 33 AM PST 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 Not on file Not on f ile Last Filed Vital Signs Vital Sign Reading Time Taken Comments Blood Pressure 120/88 05/13/2025 9:58 AM EDT Pulse 95 05/13/2025 9:58 AM EDT Temperature 36.7 C (98 F) 05/13/2025 9:58 AM EDT Respiratory Rate 16 05/13/2025 9:58 AM EDT Oxygen Saturation 96% 05/13/2025 9:58 AM EDT Inhaled Oxygen Concentration - - Weight 81.6 kg (180 lb) 05/13/2025 9:58 AM EDT Height 172.7 cm (5' 8 ) 05/13/2025 9:58 AM EDT Body Mass Index 27.37 05/13/2025 9:58 AM EDT Plan of Treatment Health Maintenance Due Date Last Done Comments Imm-Hepatitis B (1 of 3 - 19 + 3-dose series) 1993 CT Colonography 2019 Colonoscopy 2019 Colorectal Cancer Screening 2019 FIT/gFOBT 2019 Fecal DNA 2019 Flexible Sigmoidoscopy 2019 Imm-Pneumococcal 50+ (1 of 1 - PCV) 2024 Imm-Zoster, Recombinant (1 of 2) 2024 [id number] (1 - season) 2024 Imm-Influenza (#1) 2025 Medicare Annual Wellness Visit 06/16/2025 06/16/2024 Anxiety Screening 05/13/2026 05/13/2025 Hypertension Screening (#1) 05/13/2026 Tobacco Screening 05/13/2026 05/13/2025, 06/16/2024 Diabetes Screening 05/21/2026 05/21/2025, 0 05/21/2025, 06/16/2024, Additional history exists Lipid Screening 05/21/2030 05/21/2025, 06/07, 08/13/2018 Imm-DTaP/Tdap/Td (2 - Td or Tdap) 05/27/2031 021 HIV Screening Completed 06/16/2024 Hepatitis C Screening Completed 06/16/2024 Alcohol and Drug Screen Completed 05/13/20, 06/16/2024, 08/13/2018 Depression Annual Screen Completed 05/13/2025 Procedures Procedure Name Priority Date/Time Associated Diagnosis Comments HEMOGLOBIN GLYCOSYLATED A1C Routine 05/21/2025 8:45 AM EDT Routine adult health maintenance LIPID PANEL Routine 05/21/2025 8:45 AM EDT Routine adult health maintenance COMPREHENSIVE METABOLIC PANEL Routine 05/21/2025 8:45 AM EDT Routine adult health maintenance BLOOD COUNT COMPLETE AUTOMATED Routine 05/21/2025 8:45 AM EDT Routine adult health maintenance REFERRAL SCANNED DOCUMENT 05/18/2025 3:00 AM EDT REFERRAL SCANNED DOCUMENT 04/14/2025 3:00 AM EDT HIV 1/2 AG & AB W/RFLX (4TH GEN) Routine 06/16/2024 9:53 AM EDT Routine general medical examination at a health care facility HEPATITIS C AB W/RFLX HCV RNA, QT, RT PCR Routine 06/16/2024 9:53 AM EDT Routine general medical examination at a health care facility from Last 3 Months or Most Recently Relevant to Health Maintenance Results * (ABNORMAL) BLOOD COUNT COMPLETE AUTOMATED Routine (05/21/2025 8:45 AM EDT) WHITE BLOOD CELL COUNT 8.1 3.8 - 10.8 Thousand/ uL 05/22/2025 4:13 AM EDT [employer] [facility] RED BLOOD CELL COUNT 4.77 4.20 - 5.80 Million/u L 05/22/2025 4:13 AM EDT [employer] [facility] HEMOGLOBIN 13.8 13.2 - 17.1 g/dL 05/22/2025 4:13 AM EDT [employer] [facility] HEMATOCRIT 43.4 38.5 - 50.0 % 05/22/2025 4:13 AM EDT [employer] [facility] MCV 91.0 80.0 - 100.0 fL 05/22/2025 4:13 AM EDT [facility] MCH 28.9 27.0 - 33.0 pg 05/22/2025 4:13 AM [email or web address] [facility] MCHC 31.8(L) 32.0 - 36.0 g/dL 05/22/2025 4:13 AM EDT [employer] [facility] RDW 13.2 11.0 - 15.0 % 05/22/2025 4:13 AM [employer] [facility] PLATELET COUNT 240 140 - 400 Thousand/ uL 05/22/2025 4:13 AM EDT [employer] [facility] MPV 11.2 7.5 - 12.5 fL 05/22/2025 4:13 AM EDT [employer] [facility] Blood Blood / Unknown 05/21/2025 8 :45 AM EDT 05/22/2025 3:41 AM EDT [facility] - 05/22/2025 4:13 AM EDT For adults, a slight decrease in the calculated MCHC value (in the range of 30 to 32 g/dL) is most likely not clinically significant; however, it should be interpreted with caution in correlation with other red cell parameters and the patient's clinical condition. us Katie Hayes NP LAB - BLOOD DRAW Final Resul t Performing Organization Address [facility] Co de Phone Number [employer] [address] [place] [address], [employer] [address] [address] * (ABNORMAL) HEMOGLOBIN GLYCOSYLATED A1C Routine (05/21/2025 8:45 AM EDT) HEMOGLOBIN A1C 5.8(H) <5.7 % 05/22/2025 9:00 AM EDT [employer] Blood Blood / Unknown 05/21/2025 8 :45 AM EDT 05/22/2025 3:41 AM EDT Narrative [employer] - 05/22/2025 9:17 AM EDT For someone without known diabetes, a hemoglobin A1c value between 5.7% and 6.4% is consistent with prediabetes and should be confirmed with a follow-up test. . For someone with known diabetes, a value <7% indicates that their diabetes is well controlled. A1c targets should be individualized based on duration of diabetes, age, comorbid conditions, and other considerations. . This assay result is consistent with an increased risk of diabetes. . Currently, no consensus exists regarding use of hemoglobin A1c for diagnosis of diabetes for children. . us Katie Hayes NP LAB - BLOOD DRAW Final Resul t Performing Organization Address [facility] Co de Phone Number [employer] [address] [place] [phone], [employer] [address] [address] * (ABNORMAL) LIPID PANEL Routine (05/21/2025 8:45 AM EDT) CHOLESTEROL, TOTAL 208(H) <200 mg/dL 05/22/2025 9:27 AM EDT [employer] HDL CHOLESTEROL 43 > OR = 40 mg/dL 05/22/2025 9:27 AM EDT [employer] [facility] TRIGLYCERIDES 187(H) <150 mg/dL 05/22/2025 9:27 AM EDT [facility] LDL-CHOLESTEROL 133(H) mg/dL (calc) 05/22/2025 9:27 AM EDT [employer] [facility] CHOL/HDLC RATIO 4.8 <5.0 (calc) 05/22/2025 9:27 AM EDT [employer] [facility] NON-HDL CHOLESTEROL 165(H) <130 mg/dL (calc) 05/22/2025 9:27 AM EDT [employer] [facility] Blood Blood / Unknown 05/21/2025 8 :45 AM EDT 05/22/2025 7:53 AM EDT Narrative [facility] - 05/22/2025 9:32 AM EDT Reference range: <100 . Desirable range <100 mg/dL for primary prevention; <70 mg/dL for patients with CHD or diabetic patients with > or = 2 CHD risk factors. . LDL-C is now calculated using the Jesús-Chidi calculation, which is a validated novel method providing better accuracy than the Friedewald equation in the estimation of LDL-C. Jesús SS et al. KIRAN. 2013;310(19): 5127-9425 (http://education.Amartus/faq/FAX800) For patients with diabetes plus 1 major ASCVD risk factor, treating to a non-HDL-C goal of <100 mg/dL (LDL-C of <70 mg/dL) is considered a therapeutic option. us Katie Hayes NP LAB - BLOOD DRAW Final Resul t [employer] [address] [place] [address], [employer] [address] [address] * (ABNORMAL) COMPREHENSIVE METABOLIC PANEL Routine (05/21/2025 8:45 AM EDT) [facility] Signature GLUCOSE 96 65 - 99 mg/dL 05/22/2025 9:27 AM EDT [employer] [facility] UREA NITROGEN (BUN) 11 7 - 25 mg/dL 05/22/2025 9:27 AM [employer] [facility] CREATININE (blood) 0.69(L) 0.70 - 1.30 mg/dL 05/22/2025 9:27 AM [employer] [facility] EGFR 112 > OR = 60 mL/min/1. 73m2 05/22/2025 9:27 AM [employer] [facility] BUN/CREATININE RATIO 16 6 - 22 (calc) 05/22/2025 9:27 AM [employer] [facility] SODIUM 136 135 - 146 mmol/L 05/22/2025 9:27 AM [employer] [facility] POTASSIUM 4.6 3.5 - 5.3 mmol/L 05/22/2025 9:27 AM [employer] [facility] CHLORIDE 101 98 - 110 mmol/L 05/22/2025 9:27 AM [employer] [facility] CARBON DIOXIDE 28 20 - 32 mmol/L 05/22/2025 9:27 AM [employer] [facility] CALCIUM 9.3 8.6 - 10.3 mg/dL 05/22/2025 9:27 AM [employer] [facility] PROTEIN, TOTAL 7.4 6.1 - 8.1 g/dL 05/22/2025 9:27 AM [employer] [facility] ALBUMIN 4.4 3.6 - 5.1 g/dL 05/22/2025 9:27 AM [employer] [facility] GLOBULIN 3.0 1.9 - 3.7 g/dL (calc) 05/22/2025 9:27 AM [employer] [facility] ALBUMIN/GLOBULI N RATIO 1.5 1.0 - 2.5 (calc) 05/22/2025 9:27 AM [employer] [facility] BILIRUBIN, TOTAL 0.5 0.2 - 1.2 mg/dL 05/22/2025 9:27 AM [employer] [facility] ALKALINE PHOSPHATASE 40 35 - 144 U/L 05/22/2025 9:27 AM [employer] [facility] AST 14 10 - 35 U/L 05/22/2025 9:27 AM [employer] [facility] ALT 26 9 - 46 U/L 05/22/2025 9:27 AM [employer] [facility] Blood Blood / Unknown 05/21/2025 8 :45 AM EDT 05/22/2025 7:53 AM EDT Narrative [employer] - 05/22/2025 9:32 AM EDT . Fasting reference interval . us Wilson Hayes NP LAB - BLOOD DRAW Final Resul t Performing Organization Address [facility] de Phone Number [employer] [facility] [address] [address], [facility] [address] [address] * REFERRAL SCANNED DOCUMENT (05/18/2025 3:00 AM EDT) Only the most recent of2 resultswithin the time period is included. 05/18/2025 3:00 AM EDT us Katie Hayes NP SCAN REFERRAL Final Result * HEPATITIS C AB W/RFLX HCV RNA, QT, RT PCR (06/16/2024 9:53 AM EDT) HEPATITIS C ANTIBODY NON-REACT STEPHANIE NON-REACT STEPHANIE [employer] [facility] Comment: HCV antibody was non-reactive. There is no laboratory evidence of HCV infection. In most cases, no further action is required. However, if recent HCV exposure is suspected, a test for HCV RNA (test code 61127) is suggested. For additional information please refer to http://education.Volt/faq/CYJ49f6 (This link is being provided for informational/ educational purposes only.) Blood Blood / Unknown 06/16/2024 9 :53 AM EDT 06/16/2024 9:53 AM EDT Narrative [employer] [facility] - 06/17/2024 6:59 AM EDT FASTING:NO us Wilson Hayes DATA M[employer]RATION [employer]AD LAB - BLOOD DRAW Final Resul t Performing Organization Address [facility]/ZIP Co de Phone Number [facility] [address] [address], [employer] [address] [address] * HIV 1/2 AG & AB W/RFLX (4TH GEN) (06/16/2024 9:53 AM EDT) HIV AG/AB, 4TH GEN NON-REAC TIVE NON-REAC TIVE [employer] [facility] Comment: HIV-1 antigen and HIV-1/HIV-2 antibodies were [...] purpose. For additional information please refer to http://education.Volt/faq/ERL601 (This link is being provided for informational/ educational purposes only.) The performance of this assay has not been clinically validated in patients less than 2 years old. Blood Blood / Unknown 06/16/2024 9 :53 AM EDT 06/16/2024 9:53 AM EDT Narrative [facility] - 06/17/2024 6:59 AM EDT FASTING:NO Katie Hayes NP LAB - BLOOD DRAW Final Resul t [facility] [address] [address], [facility] [address] [address] from Last 3 Months or Most Recently Relevant to Health Maintenance Insurance MEDICARE - ID ID MEDICAID Care Teams Transportation Job Titles Relationship Specialty Start Date End Date Katie Hayes NP [address] [place] [place] [address] PCP - General Internal Medicine 03/26/24
--- OUTSIDE RECORDS SUMMARY | 2025-06-09 15:55 | XMS_ITS | Encounter Summary ---
Author Organization [facility] Address [address] [place] [address] Care Team Providers Care Business Analyst Project Manager Name Role Phone Katie Hayes NP Primary Care Provider Encounter Details Date Type Department Care Team (Late st Contact Info) Description 06/03/2025 Results Follow-Up [facility] [address] [place] [address] Katie Hayes NP [address] 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 Not on file Not on f ile documented as of this encounter Plan of Treatment Not on file documented as of this encounter Visit Diagnoses Not on filedocumented in this encounter Additional Health Concerns Assessment Noted Time PHQ-9 Depression Total Score: 0 05/13/20 25 9:57 AM PDT A Depression follow-up plan has been documented for the patient 06/16/2024 10:41 AM PDT documented as of this encounter Care Teams Business Analyst Project Manager Relationship Specialty Start Date End Date Katie Hayes NP [address] [place] [address] PCP - General Internal Medicine 03/26/24 documented as of this encounter
== END 2025-06-09 14:49 | disposition home or self-care (01) ==
LOC: HO.HOS 13:46
PROVIDERS: PCP Nurse Practitioner; Visit Provider Orthopaedic Surgery
DX: S66.323A Laceration of extensor muscle, fascia and tendon of left middle finger at wrist and hand level, initial encounter (principal)
CPT/HCPCS: 99024

== ENCOUNTER → 2025-06-09 13:46 | Outpatient (BNVA) | payer MEDICARE, MEDICAID, SELFPAY | PROVIDERS: PCP Nurse Practitioner; Visit Provider Orthopaedic Surgery | DX: Z47.89 Encounter for other orthopedic aftercare (principal); S66.323D Laceration of extensor muscle, fascia and tendon of left middle finger at wrist and hand level, subsequent encounter | CPT/HCPCS: 99212 ==

== ENCOUNTER 2025-07-07 10:45 | Outpatient (AMB) | payer MEDICARE, MEDICAID, SELFPAY ==
[2025-07-07 10:48] VITALS: BMI 28.2
--- NOTE | 2025-07-07 10:48 | A.OFFVIS_ITS ---
Vital Signs 07/07/25 10:48 Height 5 ft 6 in Weight 175 lb BMI 28.2 Intake Visit Reasons: PO: Lt MF Tendon Repair & CRPP 05/03/25 Intake Note: Ruperto is a 50 year old right hand dominant male who presents today with his for interpretation, for a post operative follow up/ROM check of his Left Middle Finger tendon repair and CRPP of the PIP Joint 05/03/25. Patient has been somewhat non-compliant with splinting but doing well. At his last visit he was advise to continue working with Occupational Therapy and slowly transition from light weight activities to activities as tolerated. Raheem his , states his is back at work and has been doing his ROM exercise regularly with improvement. Denies pain. Allergies No Known Allergies Allergy (Verified 07/07/25 10:49) HPI HPI PO: Lt MF Tendon Repair & CRPP 05/03/25: Details: Ruperto is a 50 year old right hand dominant Grenadian speaking man who presents S/P left middle finger central slip tendon repair & CRPP of PIP joint, DOS: 05/03/25. K-wires removed in clinic on 05/18/2025 The patient reports that he is doing well. He has returned to work & has been doing ROM exercises at home. He denies any pain and is very happy with the result of his surgery Per OT note from this morning, 06/09/25, he was non-compliant with wearing his original splint, and did not wear his orthosis at [place]. he was discharged from OT due to visit non-compliance on 06/23/25. [facility] Medical History Prediabetes Foot fracture GERD (gastroesophageal reflux disease) Surgical History Hx of foot surgery Social History Are you a primary animal care taker to a significant other at home: No Do you presently have visiting nurse or other home services: No Patient Tobacco Use Status: Never used Tobacco Current occupational status: employed Current occupation: Construction Review of Systems Const All systems reviewed & are unremarkable except as noted in HPI and below Physical Exam Vital Signs: BMI result Body Mass Index 28.2 Const General: no acute distress and alert Orientation/consciousness: patient oriented x3 Neuro General: patient oriented x3 Extrem Other: Evaluation of Left Upper Extremity: The patient is alert, oriented, and in no acute distress Neuro: Median, Ulnar, Radial nerves motor and sensory intact and sensation is normal to the tips of all digits Vascular: Cap refill brisk ROM: Regarding his left middle finger: He can fully and actively extend the digit at the MCP, PIP, and DIP joints, with ~85-90 degrees of PIP joint flexion He can bring all his fingers closed to a fist and back into full extension No tenderness, the patient is very happy with the results of his surgery Microbiology report 05/03/25 Gram stain Final 05/03/25-1339 Gram stain results: No polys No organisms seen Routine Culture Final 05/05/25-823 No growth. Psych Appearance: grossly normal Affect: normal affect Attitude: cooperative Assessment & Plan Assessment & Plan (1) Laceration of extensor muscle, fascia and tendon of left middle finger at wrist and hand level, initial encounter: Code(s): S66.323A - Laceration of extensor muscle, fascia and tendon of left middle finger at wrist and hand level, initial encounter Category: Medical Plan Assessment & Plan: 1. Left middle finger subacute laceration of central slip extensor tendon DOI: ~03/15/25 S/P: A) Debridement of interposed scar tissue from extensor tendon, and delayed primary repair of central slip extensor tendon B) Freeing up of adhesions formed between the extensor tendon in the dorsal aspect of the proximal phalanx of the left middle finger to mobilize tendon and allow for repair C) I&D of PIP joint with cultures and debridement of synovitis D) CRPP of the left middle finger PIP joint in extension DOS: 05/03/25 The patient appears to be doing well post-operatively, despite not really wearing his splint and being non-compliant with OT hand therapy appointments. Both the patient and his are happy with the results of the surgery. *See note from 06/09/25 for more details* I discussed activity modification, he is to resume all normal activities at this time He will work on ROM exercises at home He will follow up prn Scribed for Arely Rivas MD by Ricco Salas medical corps officer, on 07/07/25 at 10:55 AM, EST. Coding Level of Care Code Est Pt Level 3 (54296) Diagnoses Laceration of extensor muscle, fascia and tendon of left middle finger at wrist and hand level, initial encounter S67.802S
--- OUTSIDE RECORDS SUMMARY | 2025-07-07 12:19 | XMS_ITS | Clinical Summary ---
Author Organization [facility] Address [address] [place] [address] Care Team Providers Care Senior Java J2Ee Developer Name Role Phone Katie Hayes NP Primary Care Provider [phone] Source Comments PLEASE NOTE, if this patient is a minor, it may be UNLAWFUL to discuss sensitive information that is contained in these records (such as FAMILY PLANNING, MENTAL HEALTH or SUBSTANCE ABUSE) with the minor patient's parent or other person without the patient's specific authorization.[facility] Allergies No known active allergies Medications famotidine (PEPCID) 20 mg tabletIndicatio ns:Gastroesopha geal reflux disease without esophagitis TAKE 1 TABLET BY MOUTH 2 (TWO) TIMES DAILY NEEDED FOR HEARTBURN FOR UP TO 90 DAYS. 60 Tablet 06/16/20 25 025 Active famotidine (PEPCID) 20 mg tabletIndicatio ns:Gastroesopha geal reflux disease without esophagitis Take 1 Tablet by mouth 2 (two) times daily as needed for heartburn for up to 90 days. 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 06/09/2025 3:00 AM EDT Katie Hayes AREA PLANT MANAGER SCAN REFERRAL Final Result * (ABNORMAL) BLOOD COUNT COMPLETE AUTOMATED Routine (05/21/2025 8:45 AM EDT) WHITE BLOOD CELL COUNT 8.1 3.8 - 10.8 Thousand/ uL 05/22/2025 4:13 AM EDT [facility] RED BLOOD CELL COUNT 4.77 4.20 - 5.80 Million/u L 05/22/2025 4:13 AM EDT [facility] HEMOGLOBIN 13.8 13.2 - 17.1 g/dL 05/22/2025 4:13 AM EDT [facility] HEMATOCRIT 43.4 38.5 - 50.0 % 05/22/2025 4:13 AM EDT [facility] MCV 91.0 80.0 - 100.0 fL 05/22/2025 4:13 AM EDT [facility] MCH 28.9 27.0 - 33.0 pg 05/22/2025 4:13 AM EDT [facility] MCHC 31.8(L) 32.0 - 36.0 g/dL 05/22/2025 4:13 AM EDT [facility] RDW 13.2 11.0 - 15.0 % 05/22/2025 4:13 AM EDT [facility] PLATELET COUNT 240 140 - 400 Thousand/ uL 05/22/2025 4:13 AM EDT [facility] MPV 11.2 7.5 - 12.5 fL 05/22/2025 4:13 AM EDT [facility] Blood Blood / Unknown 05/21/2025 8 :45 AM EDT 05/22/2025 3:41 AM EDT Narrative [facility] [facility] - 05/22/2025 4:13 AM EDT For adults, a slight decrease in the calculated MCHC value (in the range of 30 to 32 g/dL) is most likely not clinically significant; however, it should be interpreted with caution in correlation with other red cell parameters and the patient's clinical condition. Katie Hayes NP LAB - BLOOD DRAW Final Resul t [facility] [facility] [address] [place] [address], [facility] [address] [address] * (ABNORMAL) HEMOGLOBIN GLYCOSYLATED A1C Routine (05/21/2025 8:45 AM EDT) HEMOGLOBIN A1C 5.8(H) <5.7 % 05/22/2025 9:00 AM EDT [facility] Blood Blood / Unknown 05/21/2025 8 :45 AM EDT 05/22/2025 3:41 AM EDT Narrative [facility] [employer] [facility] - 05/22/2025 9:17 AM EDT For someone [...] LAB - BLOOD DRAW Final Resul t [employer] [address] [place] [address], [facility] [address] [place] [address] * (ABNORMAL) LIPID PANEL Routine (05/21/2025 8:45 AM EDT) CHOLESTEROL, TOTAL 208(H) <200 mg/dL 05/22/2025 9:27 AM EDT [facility] HDL CHOLESTEROL 43 > OR = 40 mg/dL 05/22/2025 9:27 AM EDT [facility] TRIGLYCERIDES 187(H) <150 mg/dL 05/22/2025 9:27 AM EDT [facility] LDL-CHOLESTEROL 133(H) mg/dL (calc) 05/22/2025 9:27 AM EDT [facility] CHOL/HDLC RATIO 4.8 <5.0 (calc) 05/22/2025 9:27 AM EDT [facility] NON-HDL CHOLESTEROL 165(H) <130 mg/dL (calc) 05/22/2025 9:27 AM EDT [facility] Blood Blood / Unknown 05/21/2025 8 :45 AM EDT 05/22/2025 7:53 AM EDT Narrative [facility] [employer] [facility] - 05/22/2025 9:32 AM EDT Reference range: [...] LDL-C. Jesús SS et al. KIRAN. 2013;310(19): 1493-2625 (http://education.[employer]/faq/ERM545) For patients with diabetes plus 1 major ASCVD risk factor, treating to a non-HDL-C goal of <100 mg/dL (LDL-C of <70 mg/dL) is considered a therapeutic option. Katie Hayes NP LAB - BLOOD DRAW Final Resul t [facility]. [facility] [address] [address], [facility] [address] [place] [address] * (ABNORMAL) COMPREHENSIVE METABOLIC PANEL Routine (05/21/2025 8:45 AM EDT) GLUCOSE 96 65 - 99 mg/dL 05/22/2025 9:27 AM EDT [facility] UREA NITROGEN (BUN) 11 7 - 25 mg/dL 05/22/2025 9:27 AM [facility] CREATININE (blood) 0.69(L) 0.70 - 1.30 mg/dL 05/22/2025 9:27 AM [employer] EGFR 112 > OR = 60 mL/min/1. 73m2 05/22/2025 9:27 AM [facility] BUN/CREATININE RATIO 16 6 - 22 (calc) 05/22/2025 9:27 AM [employer] SODIUM 136 135 - 146 mmol/L 05/22/2025 9:27 AM [facility] POTASSIUM 4.6 3.5 - 5.3 mmol/L 05/22/2025 9:27 AM [facility] CHLORIDE 101 98 - 110 mmol/L 05/22/2025 9:27 AM [facility] CARBON DIOXIDE 28 20 - 32 mmol/L 05/22/2025 9:27 AM [facility] CALCIUM 9.3 8.6 - 10.3 mg/dL 05/22/2025 9:27 AM [employer] PROTEIN, TOTAL 7.4 6.1 - 8.1 g/dL 05/22/2025 9:27 AM [facility] ALBUMIN 4.4 3.6 - 5.1 g/dL 05/22/2025 9:27 AM [employer] GLOBULIN 3.0 1.9 - 3.7 g/dL (calc) 05/22/2025 9:27 AM [facility] ALBUMIN/GLOBULI N RATIO 1.5 1.0 - 2.5 (calc) 05/22/2025 9:27 AM [facility] BILIRUBIN, TOTAL 0.5 0.2 - 1.2 mg/dL 05/22/2025 9:27 AM EDT [facility] ALKALINE PHOSPHATASE 40 35 - 144 U/L 05/22/2025 9:27 AM EDT [facility] AST 14 10 - 35 U/L 05/22/2025 9:27 AM EDT [facility] ALT 26 9 - 46 U/L 05/22/2025 9:27 AM EDT [facility] Blood Blood / Unknown 05/21/2025 8 :45 AM EDT 05/22/2025 7:53 AM EDT Narrative [facility] [facility] - 05/22/2025 9:32 AM EDT . Fasting reference interval . us Katie Hayes NP LAB - BLOOD DRAW Final Resul t Performing Organization Address [facility] de Phone Number [facility]. [address] [address], [facility]. [address] [address] * HEPATITIS C AB W/RFLX HCV RNA, QT, RT PCR (06/16/2024 9:53 AM EDT) HEPATITIS C ANTIBODY NON-REACT STEPHANIE NON-REACT STEPHANIE [facility]. [facility] Comment: HCV antibody was non-reactive. There is no laboratory evidence of HCV infection. In most cases, no further action is required. However, if recent HCV exposure is suspected, a test for HCV RNA (test code 21543) is suggested. For additional information please refer to http://education.[employer])/faq/CBL76l8 (This link is being provided for informational/ educational purposes only.) Blood Blood / Unknown 06/16/2024 9 :53 AM EDT 06/16/2024 9:53 AM EDT Narrative [facility] [facility] - 06/17/2024 6:59 AM EDT FASTING:NO us Katie Hayes NP LAB - BLOOD DRAW Final Resul t Performing Organization Address [facility] Co de Phone Number [facility] [facility] [employer] [address] [address], [facility] [address] [place] [address] * HIV 1/2 AG & AB W/RFLX (4TH GEN) (06/16/2024 9:53 AM EDT) HIV AG/AB, 4TH GEN NON-REAC TIVE NON-REAC TIVE [facility] Comment: HIV-1 antigen and HIV-1/HIV-2 antibodies were [...] purpose. For additional information please refer to http://education.[employer])/faq/NLR618 (This link is being provided for informational/ educational purposes only.) The performance of this assay has not been clinically validated in patients less than 2 years old. Blood Blood / Unknown 06/16/2024 9 :53 AM EDT 06/16/2024 9:53 AM EDT Narrative [employer] [facility] - 06/17/2024 6:59 AM EDT FASTING:NO us Katie Hayes NP LAB - BLOOD DRAW Final Resul t [facility] [address] [address], [facility] [address] [place] [address] from Last 3 Months or Most Recently Relevant to Health Maintenance Insurance [place] Care Teams Senior Java J2Ee Developer Relationship Specialty Start Date End Date Kaite Hayes NP [address] [place] [address] PCP - General Internal Medicine 03/26/24
--- OUTSIDE RECORDS SUMMARY | 2025-07-07 12:19 | XMS_ITS | Clinical Summary ---
Author Organization [facility] Address [address] [place] [address] Phone Care Team Providers Care Forensic Nurse Name Role Phone Katie Hayes Primary Care Provider [phone] Medications polyethylene glycol (Golytely) 236-22.74-6.74 -5.86 gram [...] Health Maintenance Due Date Last Done Comments Colorectal Cancer Screening: Colonoscopy 1974 DTaP,Tdap,and Td Vaccines (1 - Tdap) 1993 Hepatitis B Vaccines (1 of 3 - 19+ 3-dose series) 1993 Pneumococcal Vaccine: 50+ Ye ars (1 of 1 - PCV) 2024 Zoster Vaccines (1 of 2) 2024 Cholesterol Screening (Lipid Panel) 07/14/2024 HIV Screening 07/14/2024 Hepatitis C Screening 07/14/2024 Medicare Annual Wellness Visit 07/14/2024 Social Influencers of Health Screening 07/14/2024 Depression Screening 10/07/2024 COVID-19 Vaccine (1 - 2023-2 5 season) 2025 Influenza Vaccine (#1) 2025 RSV Immunization Adult Patie nts (1 - 1-dose 75+ series) 2049 HIB Vaccines Aged Out No longer eligi [...] Insurance MEDICARE MEDICAID - [place] Care Teams Forensic Nurse Relationship Specialty Start Date End Date Katie Hayes PCP - General 06/17/24
== END 2025-07-07 10:58 | disposition home or self-care (01) ==
LOC: HO.HOS 10:46
PROVIDERS: PCP Nurse Practitioner; Visit Provider Orthopaedic Surgery
DX: S66.323A Laceration of extensor muscle, fascia and tendon of left middle finger at wrist and hand level, initial encounter (principal)
CPT/HCPCS: 99024

== ENCOUNTER → 2025-07-07 10:45 | Outpatient (BNVA) | payer MEDICARE, MEDICAID, SELFPAY | PROVIDERS: PCP Nurse Practitioner; Visit Provider Orthopaedic Surgery | DX: S66.323A Laceration of extensor muscle, fascia and tendon of left middle finger at wrist and hand level, initial encounter (principal) | CPT/HCPCS: 99212 ==